=== PATIENT | male | born 1965 | race Caucasian/White ===

== ENCOUNTER 2019-10-21 16:03 | Emergency (ER) | payer BC ==
[2019-10-21] MEDS ORDERED: Diphtheria,Pertussis(Acell),Tetanus Vaccine 0.5 ML SDV IM ONE (16:08)
[2019-10-21] MEDS ORDERED: Bacitracin Oint 1 GM U/D Packet TOP ONE (16:08)
[2019-10-21 16:10] VITALS: BP 165/94; PULSE 97
--- NOTE | 2019-10-21 17:11 | EDM.PDOC ---
ED HPI GENERAL MEDICAL PROBLEM - General Chief Complaint: Laceration Stated Complaint: HURT HAND WITH SAW Time Seen by Provider: 10/21/19 16:20 Source of Information: Reports: Patient, Family History Limitations: Reports: No Limitations - History of Present Illness INITIAL COMMENTS - FREE TEXT/NARRATIVE: 54-year-old male with an injury to his left index finger. He cut it on some type of a circular saw when it kicked back and struck the base of his finger. He has a very deep L-shaped laceration at the base of the finger across the dorsal aspect then angled around to the radial side. He has distal numbness along the radial aspect of the index finger. No other injury. Onset: Sudden Duration: Hour(s): (Within the last half hour) Location: Reports: Upper Extremity, Left Associated Symptoms: Reports: No Other Symptoms - Related Data Allergies Allergy/AdvReac Type Severity Reaction Status Date / Time morphine Allergy Cannot Verified 02/18/15 06:27 Remember Home Meds: Home Meds Lisinopril/Hydrochlorothiazide [Lisinopril-Hctz 20-25 mg Tab] 1 each PO DAILY [History] Coral-3 Acid Ethyl Esters [Lovaza] 2 cap PO BID 02/17/15 [History] Pravastatin Sodium [Pravastatin (Pravachol)] 20 mg PO DAILY 02/17/15 [History] amLODIPine [Norvasc] 5 mg PO DAILY 02/17/15 [History] Acetaminophen/HYDROcodone [[place] 325-10 MG] 1 - 2 tab PO Q4H PRN #50 tablet 01/29 [Rx] Ibuprofen [Motrin] 600 mg PO ASDIRECTED 03/25/16 [History] LORazepam [Lorazepam] 1 mg PO ASDIRECTED PRN 10/21/19 [History] carisoprodoL [Carisoprodol] 350 mg PO TID 10/21/19 [History] metFORMIN HCl [Metformin HCl] 500 mg PO BID 10/21/19 [History] Past Medical History Cardiovascular History: Reports: High Cholesterol, Hypertension Musculoskeletal History: Reports: Back Pain, Chronic Endocrine/Metabolic History: Reports: Diabetes, Type II - Past Surgical History GI Surgical History: Reports: Hernia Repair/Other Other Neurological Surgeries/Procedures: L4 L5 Musculoskeletal Surgical History: Reports: Arthroscopic Procedure Social & Family History - Tobacco Use Smoking Status *Q: Never Smoker - Caffeine Use Caffeine Use: Reports: Coffee - Recreational Drug Use Recreational Drug Use: No ED ROS GENERAL - Review of Systems Review Of Systems: See Below Constitutional: Denies: Fever, Chills Respiratory: Denies: Shortness of Breath Cardiovascular: Denies: Chest Pain GI/Abdominal: Denies: Nausea, Vomiting Neurological: Denies: Headache Psychiatric: Reports: Anxiety (Patient is anxious about getting his shots and is feeling a little lightheaded) ED EXAM, SKIN/RASH Exam: See Below Exam Limited By: No Limitations General Appearance: Alert, No Apparent Distress, Anxious Respiratory/Chest: No Respiratory Distress Cardiovascular: Regular Rate, Rhythm Extremities: Other (Exam is otherwise limited to the left hand. The patient has an 8 cm L-shaped flap-like laceration that is very deep on the radial and dorsal aspect of the index finger. He has numbness distal to the laceration on the radial aspect of the index finger but capillary refill is intact and there is no deficit with movement. The wound was explored to its depth, the extensor tendon sheath is torn but the tendon itself is intact. He has full extension and can flex the finger.) Course - Vital Signs Last Recorded V/S: Last Vital Signs Temp 97 F 10/21/19 16:10 Pulse 97 10/21/19 16:10 Resp 16 10/21/19 16:10 BP 165/94 H 10/21/19 16:10 Pulse Ox 97 10/21/19 16:10 - Orders/Labs/Meds Orders: Active Orders 24 hr Category Date Time Status Vaccines to be Administered [RC] PER UNIT ROUTINE Care 10/21/19 16:08 Active Meds: Medications Discontinued Medications Generic Name Dose Route Start Last Admin Trade Name Francesca PRN Reason Stop Dose Admin Bacitracin 1 dose 10/21/19 16:08 10/21/19 16:36 Bacitracin Oint 1 Gm TOP 10/21/19 16:09 1 dose ONETIME ONE Administration Diphtheria/Tetanus/Acell Pertussis 0.5 ml 10/21/19 16:08 10/21/19 16:37 Adacel IM 10/21/19 16:09 0.5 ml .ONCE ONE Administration Lidocaine HCl 5 ml 10/21/19 16:08 10/21/19 16:36 Xylocaine-Mpf 1% INJECT 10/21/19 16:09 5 ml ONETIME ONE Administration Lidocaine HCl Confirm 10/21/19 16:28 10/21/19 16:39 Xylocaine-Mpf 1% Administered 10/21/19 16:29 Not Given Dose 5 ml .ROUTE .STK-MED ONE Lidocaine HCl 5 ml 10/21/19 16:38 10/21/19 16:39 Xylocaine-Mpf 1% INJECT 10/21/19 16:39 5 ml ONETIME ONE Administration - Re-Assessments/Exams Free Text/Narrative Re-Assessment/Exam: 10/21/19 17:08 The wound was anesthetized with lidocaine and then cleansed thoroughly with several flushings of saline. It was again explored and revealed an intact extensor and flexor tendon although the wound extends right down to the surface of the tendon. Six 5-0 chromic sutures were used for subcutaneous repair to approximate the laceration, then fourteen 4-0 Ethilon sutures were used to close of the wound. He again went through range of motion with the finger and was able to extend the finger and flex the finger although not fully due to the swelling. He will be discharged with 21 cephalexin to take 3 times a day until gone, and 10 hydrocodone for extra pain control. He was also given a Tdap booster and placed in a tube gauze for the next 12 hours. After that he can gently wash the wound and cover with large Band-Aids. Sutures can be removed in 2 weeks. He should recheck sooner if concerns of infection or not healing satisfactorily. Departure - Departure Time of Disposition: 17:20 Disposition: Home, Self-Care 01 Clinical Impression: Laceration of index finger Qualifiers: Encounter type: initial encounter Damage to nail status: without damage Foreign body presence: without foreign body Laterality: left Qualified Code(s): S61.211A - Laceration without foreign body of left index finger without damage to nail, initial encounter - Discharge Information Instructions: Laceration Care, Adult Referrals: Esther Browning PA [Primary Care Provider] - Forms: ED Department Discharge Care Plan Goals: Take antibiotic 3 times a day until gone, keep the wound covered and clean while healing. Sutures can be removed in 2 weeks, Sunday or SundayNovember 03 or . Recheck sooner if concerns of infection or not healing satisfactorily. Ibuprofen or naproxen will be helpful with discomfort, gentle range of motion of the hand is beneficial. Use stronger pain medication if needed when trying to rest. Sepsis Event Note - Evaluation Sepsis Screening Result: No Definite Risk - Focused Exam Vital Signs: Vital Signs Temp Pulse Resp BP Pulse Ox 10/21/19 16:10 97 F 97 16 165/94 H 97 10/21/19 16:09 97 F 97 16 165/94 H 97 Date Exam was Performed: 10/21/19 Time Exam was Performed: 17:26 - My Orders Last 24 Hours: My Active Orders 10/21/19 16:08 Vaccines to be Administered [RC] PER UNIT ROUTINE - Assessment/Plan Last 24 Hours: My Active Orders 10/21/19 16:08 Vaccines to be Administered [RC] PER UNIT ROUTINE
== END 2019-10-21 17:20 | disposition home or self-care (01) ==
LOC: JP.ED 16:03
DX: S61.211A Laceration without foreign body of left index finger without damage to nail, initial encounter (principal); I10 Essential (primary) hypertension; E11.9 Type 2 diabetes mellitus without complications; E78.00 Pure hypercholesterolemia, unspecified; Z88.5 Allergy status to narcotic agent; Z79.84 Long term (current) use of oral hypoglycemic drugs; Z79.899 Other long term (current) drug therapy; Z23 Encounter for immunization; W27.0XXA Contact with workbench tool, initial encounter
CPT/HCPCS: 12004; 90471; 90715; 99283; J2001

== ENCOUNTER 2022-04-22 19:38 | Emergency (ER) | payer BC ==
[2022-04-22 19:53] VITALS: BP 142/84; PULSE 86
[2022-04-22] MEDS ORDERED: Ketorolac 30 MG/ML SDV IM ONE (20:46)
== END 2022-04-22 21:20 | disposition home or self-care (01) ==
LOC: JP.ED 19:38
DX: U07.1 COVID-19 (principal); H60.331 Swimmer's ear, right ear; H69.83 Other specified disorders of Eustachian tube, bilateral; I10 Essential (primary) hypertension; E11.9 Type 2 diabetes mellitus without complications; Z88.6 Allergy status to analgesic agent; Z79.899 Other long term (current) drug therapy; Z79.84 Long term (current) use of oral hypoglycemic drugs; Z86.16 Personal history of COVID-19
CPT/HCPCS: 96372; 99282; J1885

== ENCOUNTER 2022-04-23 19:50 | Emergency (ER) | payer BC ==
[2022-04-23 20:18] VITALS: BP 155/106; PULSE 91
[2022-04-23] MEDS ORDERED: HYDROmorphone 0.5 MG/0.5 ML Syringe IVPUSH ONE (20:50)
[2022-04-23] MEDS ORDERED: Ketorolac 30 MG/ML SDV IVPUSH ONE (20:50)
== END 2022-04-23 22:52 | disposition home or self-care (01) ==
LOC: JP.ED 19:50
DX: H66.001 Acute suppurative otitis media without spontaneous rupture of ear drum, right ear (principal); H60.331 Swimmer's ear, right ear; I10 Essential (primary) hypertension; E11.9 Type 2 diabetes mellitus without complications; Z88.6 Allergy status to analgesic agent; Z79.899 Other long term (current) drug therapy; Z79.84 Long term (current) use of oral hypoglycemic drugs; Z86.16 Personal history of COVID-19
CPT/HCPCS: 70480; 99283; J1170; J1885; 99281

== ENCOUNTER 2025-01-19 18:22 | Emergency (ER) | payer BC ==
[2025-01-19 18:47] VITALS: BP 127/77; PULSE 98
[2025-01-19] MEDS: Cephalexin 250 MG Cap PO ONE (19:44)
== END 2025-01-19 19:56 | disposition home or self-care (01) ==
LOC: JP.ED 18:22
DX: S61.212A Laceration without foreign body of right middle finger without damage to nail, initial encounter (principal); I10 Essential (primary) hypertension; E11.9 Type 2 diabetes mellitus without complications; Z88.8 Allergy status to other drugs, medicaments and biological substances; Z79.899 Other long term (current) drug therapy; Z79.1 Long term (current) use of non-steroidal anti-inflammatories (NSAID); Z79.84 Long term (current) use of oral hypoglycemic drugs; Z88.5 Allergy status to narcotic agent; Z86.16 Personal history of COVID-19; W26.8XXA Contact with other sharp object(s), not elsewhere classified, initial encounter; Y93.89 Activity, other specified
CPT/HCPCS: 12001; 73140; 99283; A9270